=== PATIENT | female | born 1980 | race Caucasian/White ===

== ENCOUNTER 2017-06-16 06:44 | Day surgery (SDC) | payer BC ==
[2017-06-16 07:02] VITALS: BMI 27.4
[2017-06-16 07:32] VITALS: RESP 18
[2017-06-16] MEDS ORDERED: Bupivacaine 0.5% Inj(30mL) ONE (07:33)
[2017-06-16] MEDS ORDERED: ePHEDrine 50 mg/ml Inj ONE (07:35)
[2017-06-16] MEDS ORDERED: Rocuronium 10 mg/ml (5 ml) ONE (07:35)
[2017-06-16] MEDS ORDERED: Propofol 10 mg/ml Inj (20 ML) ONE (07:35)
[2017-06-16] MEDS ORDERED: Succinylcholine 200 mg/10 ml Inj IV ONE (07:35)
[2017-06-16 07:36] LABS: BASO % 0.6 % (0.0-2.0); EOS # 0.1 K/uL (0.0-0.7); EOS % 2.1 % (0.0-4.0); HEMATOCRIT 38.4 % (34.0-47.0); LYMPH % 37.2 % (20.0-40.0); MEAN CELL VOLUME 85.4 fl (81.0-99.0); MEAN CORPUSCULAR HGB CONC 32.8 g/dL (33.0-37.0); MEAN PLATELET VOLUME 7.5 fl (7.2-11.7); MONO # 0.4 K/uL (0.0-0.8); MONO % 7.3 % (0.0-10.0); NEUT # 2.9 K/uL (1.8-7.0); NEUT % 52.8 % (50.0-75.0); NRBC % 0.1 % (0.0-0.0); RED CELL DISTRIBUTION WIDTH 14.1 % (11.5-14.5); WHITE BLOOD COUNT 5.5 K/uL (4.8-10.8)
[2017-06-16] MEDS ORDERED: Lidocaine 4% (Laryng-O-Jet) Kit MM ONE (07:37)
[2017-06-16] MEDS ORDERED: Lactated Ringer's 500 ML IV ONE (08:17)
[2017-06-16] MEDS ORDERED: Midazolam 2 MG/2 ML VIAL ONE (08:52)
[2017-06-16] MEDS ORDERED: Sodium Chloride 0.9% 1,000 ML IV ONE ×3 (09:10→12:50)
[2017-06-16] MEDS ORDERED: Phenylephrine 10 mg/ml Inj ONE (09:17)
[2017-06-16] MEDS ORDERED: Dexamethasone 4 mg/1 ml ONE (09:29)
[2017-06-16] MEDS ORDERED: Desflurane Inhalation Anesthetic Liq (240 ml) ONE (10:21)
[2017-06-16] MEDS ORDERED: Neostigmine Methylsulfate 2 MG/2 ML ML IV ONE (10:50)
[2017-06-16] MEDS ORDERED: HYDROmorphone 0.5 mg/0.5 ml ISec IVP PRN (11:18)
[2017-06-16] MEDS ORDERED: HYDROmorphone 0.5 mg/0.5 ml ISec ONE (11:24)
[2017-06-16] MEDS ORDERED: Sodium Chloride 0.9% 1,000 ML IV SCH (11:30)
[2017-06-16] MEDS ORDERED: Oxycodone/Acetaminophen 5/325 mg Tab PO PRN (12:37)
[2017-06-16] MEDS ORDERED: Oxycodone/Acetaminophen 5/325 mg Tab PO ONE (13:25)
[2017-06-16 15:37] VITALS: O2SAT 98
[2017-06-16 16:55] VITALS: BP 96/66; PULSE 107; TEMP 98.8
== END 2017-06-16 17:49 | disposition home or self-care (01) ==
LOC: H.OPSURG 06:44
PROVIDERS: ATTEND Obstetrics & Gynecology Reproductive Endocrinology
DX: N80.0 Endometriosis of uterus (principal); R10.2 Pelvic and perineal pain; N94.6 Dysmenorrhea, unspecified; N94.19 Other specified dyspareunia; R39.89 Other symptoms and signs involving the genitourinary system
CPT/HCPCS: 36415; 52005; 58662; 85025; 86850; 86900; 88305; J0330; J0690; J1100; J1170; J2001; J2250; J2370; J2405; J2704; J2710; J3010; J7040; J7120